=== PATIENT | male | born 1970 | race Caucasian/White ===

== ENCOUNTER 2021-12-21 20:27 | Emergency (ER) | payer BC ==
[~2021-12-21] VITALS: Ht 175.3 cm; Wt 111.0 kg
[~2021-12-21 20:27] MED LIST: NAPROSYN500 MG PO; NAPROXEN500 MG PO; TRAMADOL HCL50 MG PO
[2021-12-21 21:11] LABS: HEMATOCRIT 39.9 % (39.0-50.0); HEMOGLOBIN 14.1 g/dl (14.0-18.0); IMMATURE GRANULOCYTES 0.2 % (0.0-5.0); MEAN CELL VOLUME 98.3 fL CALC (80.0-100.0); MEAN CORPUSCULAR HGB 34.7 pG CALC (26.0-32.0); MEAN CORPUSCULAR HGB CONC 35.3 g/dL CAL (32.0-36.0); NEUT# 5.4 thou/uL (1.82-7.42); RED BLOOD COUNT 4.06 mill/uL (4.70-6.10)
[2021-12-21 21:31] LABS: ALBUMIN 4.4 g/dL (3.2-5.0); ALKALINE PHOSPHATASE 68 u/l (38-126); BILIRUBIN, TOTAL 0.8 mg/dL (0.0-1.4); BUN 12 mg/dL (9-20); BUN/CREATININE RATIO 12 (12-20 (CALC)); CARBON DIOXIDE 24 mmol/l (22-30); CHLORIDE 102 mmol/l (95-108); GFR > 60 ML/MIN (>=60 (CALC)); GFR FOR AFR.AMER. > 60 ML/MIN (>=60 (CALC)); SGOT/AST 55 u/l (17-59); SODIUM 137 mmol/l (137-146); TOTAL PROTEIN 7.7 g/dL (6.3-8.2)
[2021-12-21 21:33] LABS: ANION GAP 16 (6-22 (CALC)); POTASSIUM 5.2 mmol/l (3.5-5.1)
[2021-12-21] MEDS ORDERED: LORTAB 1010 MG PO (23:31)
[2021-12-21] MEDS ORDERED: BACTRIM DS1 TAB PO (23:31)
[2021-12-21 23:36] VITALS: BP 132/81
== END 2021-12-21 23:45 | disposition home or self-care (01) | DRG 605 ==
LOC: ED 20:27
PROVIDERS: Emergency Medicine
DX: S80.11XA Contusion of right lower leg, initial encounter (principal); W22.8XXA Striking against or struck by other objects, initial encounter; Y93.19 Activity, other involving water and watercraft
CPT/HCPCS: Q9967